=== PATIENT | male | born 1945 | race Caucasian/White ===

== ENCOUNTER 2020-07-05 15:19 | Inpatient (IN) | payer OTHER ==
[~2020-07-05] VITALS: Ht 175.3 cm; Wt 83.7 kg
[2020-07-05 19:07] LABS: Basophils # (auto) 0 10 ^3/uL (0-0.2); Basophils % (auto) 0.2 % (0.0-2.0); Eosinophils # (auto) 0 10 ^3/uL (0-0.8); Eosinophils % (auto) 0.3 % (0.0-7.0); Hemoglobin 17.2 g/dL (13.5-17.5); Lymphocytes # (auto) 0.5 10 ^3/uL (0.4-5.4); Lymphocytes % (auto) 7.7 % (10.0-50.0); Mean Corpuscular Hgb Conc. 33.7 g/dL (32.0-36.0); Mean Corpuscular Volume 88.8 fL (80.0-100.0); Monocytes # (auto) 0.9 10 ^3/uL (0-1.3); Monocytes % (auto) 13.9 % (0.0-12.0); Neutrophils # (auto) 5.2 10 ^3/uL (1.6-8.6); Neutrophils % (auto) 77.9 % (37.0-80.0); Nucleated Red Blood Cells % 0.1 %; Platelet Count (auto) 207 10^3/uL (140-450); Red Blood Cells 5.74 10^6/uL (4.5-5.90); Red Cell Distribution Width 18.4 % (11.8-14.3); White Blood Cell 6.7 10^3/uL (4.4-10.8)
[2020-07-05] MEDS ORDERED: DexAMETHasone SOD PHOS 10MG/1ML VIAL INJ IV ONE (19:15)
[2020-07-05] MEDS ORDERED: SODIUM CHLORIDE 0.9% 1,000 ML IVB ONE (19:15)
[2020-07-05] MEDS ORDERED: AZITHROMYCIN 500MG/ 250ML 250 ML IV ONE (19:15)
[2020-07-05 19:27] LABS: Potassium 3.3 mmol/L (3.5-5.1)
[2020-07-05 19:44] LABS: Albumin 2.7 g/dL (3.4-5.0); BUN/Creatinine Ratio 25.4; Bilirubin, Total 1.2 mg/dL (0.2-1.0); Calcium 8.5 mg/dL (8.5-10.1); Magnesium 2.9 mg/dL (1.6-2.6); Total Protein 7.2 g/dL (6.4-8.2)
[2020-07-05] MEDS ORDERED: ACCU-CHEK COMFORT CURVE STRIP VI ONE (20:00)
[2020-07-05] MEDS ORDERED: DEXTROSE (50%) 50ML SYRG IV ONE (20:00)
[2020-07-06] MEDS ORDERED: DEXTROSE (50%) 50ML SYRG IV PRN ×2 (04:15)
[2020-07-06] MEDS ORDERED: ONDANSETRON HCL 4 MG/2 ML VIAL IV PRN ×2 (04:15→11:45)
[2020-07-06] MEDS ORDERED: POTASSIUM CHL 20MEQ/100ML 100 ML IV ONE (04:15)
[2020-07-06] MEDS ORDERED: MORPHINE SULF INJ 2 MG/ML SYRINGE 1ML IV PRN (04:15)
[2020-07-06] MEDS ORDERED: DOCUSATE SOD 100 MG CAP PO PRN (04:15)
[2020-07-06] MEDS ORDERED: NITROGLYCERIN 0.4 MG SL TAB SL PRN (04:15)
[2020-07-06] MEDS ORDERED: ACETAMINOPHEN 325 MG TAB PO PRN (04:15)
[2020-07-06] MEDS: SODIUM CHLOR 0.9% PF (SALINE LOCK) 10ML VIAL/SYR IV SCH ×3 (06:15→22:25)
[2020-07-06] MEDS: ACCU-CHEK COMFORT CURVE STRIP VI SCH ×8 (06:28→22:00)
[2020-07-06] MEDS: InsuLIN REG 1unit/0.01ml Soln (100units/ml) SC SCH ×8 (06:29→22:00)
[2020-07-06] MEDS: ZINC SULFATE 220mg CAP or TAB PO SCH (09:15)
[2020-07-06] MEDS: DexAMETHasone SOD PHOS 10MG/1ML VIAL INJ IV SCH (09:15)
[2020-07-06] MEDS: DOXYCYCLINE 100MG/250ML 250 ML IV SCH ×2 (09:15→22:26)
[2020-07-06] MEDS: MULTIPLE VITAMIN TAB PO SCH (09:15)
[2020-07-06] MEDS: FAMOTIDINE (10MG/ML) 2ML VL IV SCH (09:15)
[2020-07-06] MEDS: CHOLECALCIFEROL (VITD3) 2,000 UNIT CAP PO SCH (09:16)
[2020-07-06] MEDS: ASCORBIC ACID 1,000 MG TAB PO SCH (09:16)
[2020-07-06] MEDS: HEPARIN SODIUM (PORCINE) 5000 UNITS/ML 1ML VIAL SC SCH ×2 (09:16→22:00)
[2020-07-06 09:54] LABS: Basophils # (auto) 0 10 ^3/uL (0-0.2); Basophils % (auto) 0.2 % (0.0-2.0); Eosinophils # (auto) 0 10 ^3/uL (0-0.8); Hematocrit 50.5 % (41.0-53.0); Lymphocytes # (auto) 0.2 10 ^3/uL (0.4-5.4); Lymphocytes % (auto) 4.2 % (10.0-50.0); Mean Corpuscular Hgb Conc. 33.6 g/dL (32.0-36.0); Mean Corpuscular Volume 89.3 fL (80.0-100.0); Monocytes # (auto) 0.5 10 ^3/uL (0-1.3); Monocytes % (auto) 9.9 % (0.0-12.0); Neutrophils # (auto) 4.6 10 ^3/uL (1.6-8.6); Neutrophils % (auto) 85.7 % (37.0-80.0); Nucleated Red Blood Cells % 0.2 %; Platelet Count (auto) 227 10^3/uL (140-450); Red Blood Cells 5.65 10^6/uL (4.5-5.90); Red Cell Distribution Width 18.4 % (11.8-14.3); White Blood Cell 5.4 10^3/uL (4.4-10.8)
[2020-07-06 10:20] LABS: Albumin 2.4 g/dL (3.4-5.0)
[2020-07-06 10:24] LABS: BUN/Creatinine Ratio 24.2; Bilirubin, Total 1.2 mg/dL (0.2-1.0); Potassium 3.9 mmol/L (3.5-5.1); Total Protein 7.2 g/dL (6.4-8.2)
[2020-07-06] MEDS: ALBUTEROL SULF HFA 90MCG INH 200DOSE IN PRN ×2 (10:29→22:02)
[2020-07-06] MEDS: BUDESONIDE (INHALATION) 180 MCG IH IN SCH ×2 (10:29→22:02)
[2020-07-06 10:50] LABS: Urine Bacteria NONE SEEN /hpf (None Seen); Urine Blood TRACE /uL (Negative); Urine Specific Gravity 1.015 (1.001-1.035); Urine WBC 1 /hpf (0 - 3)
[2020-07-06] MEDS ORDERED: TEMAZEPAM 15 MG CAP PO PRN (11:45)
[2020-07-06] MEDS ORDERED: traMADol HCL 50 MG TAB PO PRN (11:45)
[2020-07-06] MEDS ORDERED: levoFLOXacin 500MG 100 ML IV ONE (13:00)
[2020-07-07] MEDS: InsuLIN REG 1unit/0.01ml Soln (100units/ml) SC SCH ×6 (04:45→22:00)
[2020-07-07] MEDS: ACCU-CHEK COMFORT CURVE STRIP VI SCH ×6 (04:55→23:06)
[2020-07-07 05:00] VITALS: BP 142/83
[2020-07-07] MEDS: SODIUM CHLOR 0.9% PF (SALINE LOCK) 10ML VIAL/SYR IV SCH ×3 (06:00→22:00)
[2020-07-07] MEDS: BUDESONIDE (INHALATION) 180 MCG IH IN SCH ×2 (06:22→20:50)
[2020-07-07] MEDS: ALBUTEROL SULF HFA 90MCG INH 200DOSE IN PRN ×2 (06:22→20:50)
[2020-07-07] MEDS ORDERED: INSLANTI SC (07:42)
[2020-07-07] MEDS ORDERED: GABA400C PO (07:42)
[2020-07-07] MEDS ORDERED: TAMS0.4C36 PO (07:42)
[2020-07-07] MEDS ORDERED: BACL20TA PO (07:42)
[2020-07-07] MEDS ORDERED: ROSU40TA PO (07:42)
[2020-07-07] MEDS ORDERED: FURO20TA3 PO (07:42)
[2020-07-07] MEDS ORDERED: MELO1TAB56 PO (07:45)
[2020-07-07] MEDS ORDERED: GLIP5TAB12 PO (07:46)
[2020-07-07] MEDS ORDERED: ASCO500C49 PO (07:46)
[2020-07-07] MEDS ORDERED: CALC667C5 PO (07:46)
[2020-07-07 08:00] VITALS: BP 122/63
[2020-07-07] MEDS: DexAMETHasone SOD PHOS 10MG/1ML VIAL INJ IV SCH (10:12)
[2020-07-07] MEDS: FAMOTIDINE (10MG/ML) 2ML VL IV SCH (10:13)
[2020-07-07] MEDS: levoFLOXacin 250MG 50 ML IV SCH (10:13)
[2020-07-07] MEDS: ZINC SULFATE 220mg CAP or TAB PO SCH (10:13)
[2020-07-07] MEDS: DOXYCYCLINE 100MG/250ML 250 ML IV SCH ×2 (10:13→23:06)
[2020-07-07] MEDS: MULTIPLE VITAMIN TAB PO SCH (10:14)
[2020-07-07] MEDS: ASCORBIC ACID 1,000 MG TAB PO SCH (10:14)
[2020-07-07] MEDS: CHOLECALCIFEROL (VITD3) 2,000 UNIT CAP PO SCH (10:14)
[2020-07-07] MEDS: HEPARIN SODIUM (PORCINE) 5000 UNITS/ML 1ML VIAL SC SCH ×2 (10:16→23:08)
[2020-07-07 11:05] LABS: Basophils # (auto) 0 10 ^3/uL (0-0.2); Basophils % (auto) 0.1 % (0.0-2.0); Eosinophils # (auto) 0 10 ^3/uL (0-0.8); Lymphocytes # (auto) 0.3 10 ^3/uL (0.4-5.4); Monocytes # (auto) 1.3 10 ^3/uL (0-1.3); Nucleated Red Blood Cells % 0.2 %
[2020-07-07 11:07] LABS: Hematocrit 52.8 % (41.0-53.0); Lymphocytes % (auto) 2.2 % (10.0-50.0); Mean Corpuscular Hemoglobin 30.5 pg (28.0-32.0); Mean Corpuscular Hgb Conc. 34.2 g/dL (32.0-36.0); Mean Corpuscular Volume 89.2 fL (80.0-100.0); Monocytes % (auto) 9.8 % (0.0-12.0); Neutrophils # (auto) 11.4 10 ^3/uL (1.6-8.6); Neutrophils % (auto) 87.9 % (37.0-80.0); Platelet Count (auto) 308 10^3/uL (140-450); Red Blood Cells 5.91 10^6/uL (4.5-5.90); Red Cell Distribution Width 18.7 % (11.8-14.3)
[2020-07-07 11:14] LABS: Albumin 2.5 g/dL (3.4-5.0); Calcium 8.7 mg/dL (8.5-10.1); Potassium 3.8 mmol/L (3.5-5.1)
[2020-07-07 11:17] LABS: BUN/Creatinine Ratio 21.2; Bilirubin, Total 1.1 mg/dL (0.2-1.0); Total Protein 7.5 g/dL (6.4-8.2)
[2020-07-07 12:00] VITALS: BP 128/76
[2020-07-07 17:00] VITALS: BP 126/79
[2020-07-07 22:00] VITALS: BP 156/84
[2020-07-08 05:00] VITALS: BP 139/90
[2020-07-08] MEDS: SODIUM CHLOR 0.9% PF (SALINE LOCK) 10ML VIAL/SYR IV SCH ×3 (06:00→22:29)
[2020-07-08] MEDS: InsuLIN REG 1unit/0.01ml Soln (100units/ml) SC SCH ×2 (06:46→11:50)
[2020-07-08] MEDS: ACCU-CHEK COMFORT CURVE STRIP VI SCH ×2 (06:48→11:45)
[2020-07-08 09:00] VITALS: BP 131/80
[2020-07-08] MEDS: BUDESONIDE (INHALATION) 180 MCG IH IN SCH ×2 (10:00→19:35)
[2020-07-08] MEDS: DexAMETHasone SOD PHOS 10MG/1ML VIAL INJ IV SCH (10:26)
[2020-07-08] MEDS: FAMOTIDINE (10MG/ML) 2ML VL IV SCH (10:26)
[2020-07-08] MEDS: ZINC SULFATE 220mg CAP or TAB PO SCH (10:27)
[2020-07-08] MEDS: MULTIPLE VITAMIN TAB PO SCH (10:27)
[2020-07-08] MEDS: CHOLECALCIFEROL (VITD3) 2,000 UNIT CAP PO SCH (10:27)
[2020-07-08] MEDS: DOXYCYCLINE 100MG/250ML 250 ML IV SCH ×2 (10:27→22:28)
[2020-07-08] MEDS: ASCORBIC ACID 1,000 MG TAB PO SCH (10:27)
[2020-07-08] MEDS: HEPARIN SODIUM (PORCINE) 5000 UNITS/ML 1ML VIAL SC SCH (10:28)
[2020-07-08] MEDS: ALBUTEROL SULF HFA 90MCG INH 200DOSE IN PRN ×2 (11:34→19:35)
[2020-07-08] MEDS: levoFLOXacin 250MG 50 ML IV SCH (12:18)
[2020-07-08 13:00] VITALS: BP 152/89
[2020-07-08] MEDS ORDERED: REMDESIVIR PER PHARMACY 0 ML IV SCH (16:00)
[2020-07-08] MEDS ORDERED: PPN PER PHARMACY 0 ML IV SCH (16:00)
[2020-07-08 16:29] VITALS: BP 137/84
[2020-07-08] MEDS ORDERED: REMDESIVIR 200 MG in NS 210ml LOADING DOSE ADULT IV ONE (17:00)
[2020-07-08] MEDS: AMINO ACID INFUSION IN D10W 1,000 ML IV NR (20:24)
[2020-07-08 22:00] VITALS: BP 134/87
[2020-07-08] MEDS: ENOXAPARIN SOD 80 MG/0.8ML SYRINGE SC SCH (22:28)
[2020-07-09] VITALS (55 sets, daily range): BP systolic 78–131; BP diastolic 51–98
[2020-07-09] MEDS ORDERED: DEXTROSE (50%) 50ML SYRG IV SCH
[2020-07-09] MEDS ORDERED: LORazepam 2MG/ML-1ML VIAL IV PRN (01:00)
[2020-07-09] MEDS ORDERED: ETOMIDATE (2MG/ML) 20ML VIAL IV ONE ×2 (01:29→03:15)
[2020-07-09] MEDS ORDERED: SUCCINYLCHOLINE CHLORIDE 20 MG/ML 10ML VIAL IV ONE ×2 (01:29→03:15)
[2020-07-09] MEDS ORDERED: MIDAZOLAM DRIP 50 mg/50mL 50 ML IV ONE (01:44)
[2020-07-09] MEDS ORDERED: MIDAZOLAM DRIP 50 mg/50mL 50 ML IV SCH (02:15)
[2020-07-09] MEDS ORDERED: ACETAMINOPHEN 650 mg PER 20.3 mL UD GT PRN (02:15)
[2020-07-09] MEDS: SODIUM CHLORIDE 0.9% 1,000 ML IV SCH ×2 (02:40→18:42)
[2020-07-09] MEDS: ACCU-CHEK COMFORT CURVE STRIP VI SCH ×4 (06:00→17:41)
[2020-07-09] MEDS: SODIUM CHLOR 0.9% PF (SALINE LOCK) 10ML VIAL/SYR IV SCH ×4 (06:00→22:00)
[2020-07-09] MEDS: InsuLIN REG 1unit/0.01ml Soln (100units/ml) SC SCH ×4 (06:00→17:42)
[2020-07-09] MEDS: ALBUTEROL SULF 2.5 MG/0.5ML(0.5%) NEB SOLN NEB SCH ×3 (06:00→18:36)
[2020-07-09 09:59] LABS: Basophils # (auto) 0 10 ^3/uL (0-0.2); Basophils % (auto) 0.1 % (0.0-2.0); Eosinophils # (auto) 0 10 ^3/uL (0-0.8); Hematocrit 51.6 % (41.0-53.0); Hemoglobin 17.4 g/dL (13.5-17.5); Lymphocytes # (auto) 0.6 10 ^3/uL (0.4-5.4); Lymphocytes % (auto) 4.2 % (10.0-50.0); Mean Corpuscular Hemoglobin 30.6 pg (28.0-32.0); Mean Corpuscular Hgb Conc. 33.7 g/dL (32.0-36.0); Mean Corpuscular Volume 90.8 fL (80.0-100.0); Monocytes # (auto) 1.5 10 ^3/uL (0-1.3); Monocytes % (auto) 10.5 % (0.0-12.0); Neutrophils # (auto) 12.6 10 ^3/uL (1.6-8.6); Neutrophils % (auto) 85.2 % (37.0-80.0); Platelet Count (auto) 369 10^3/uL (140-450); Red Blood Cells 5.69 10^6/uL (4.5-5.90); Red Cell Distribution Width 19.2 % (11.8-14.3); White Blood Cell 14.8 10^3/uL (4.4-10.8)
[2020-07-09] MEDS: BUDESONIDE (INHALATION) 0.5 MG/2 ML NEB NEB SCH ×2 (10:00→18:36)
[2020-07-09 10:20] LABS: Potassium 5.1 mmol/L (3.5-5.1)
[2020-07-09 10:43] LABS: Albumin 2.1 g/dL (3.4-5.0); BUN/Creatinine Ratio 24.7; Calcium 8.4 mg/dL (8.5-10.1); Magnesium 3.2 mg/dL (1.6-2.6); Phosphorus 5.6 mg/dL (2.5-4.90); Pre Albumin 11.3 mg/dL (20.0-40.0); Total Protein 7.1 g/dL (6.4-8.2)
[2020-07-09] MEDS: DexAMETHasone SOD PHOS 10MG/1ML VIAL INJ IV SCH (11:39)
[2020-07-09] MEDS: levoFLOXacin 250MG 50 ML IV SCH (11:41)
[2020-07-09] MEDS: FAMOTIDINE (10MG/ML) 2ML VL IV SCH (11:42)
[2020-07-09] MEDS: DOXYCYCLINE 100MG/250ML 250 ML IV SCH ×2 (11:44→23:00)
[2020-07-09] MEDS: ASCORBIC ACID 1,000 MG TAB PO SCH (11:45)
[2020-07-09] MEDS: ZINC SULFATE 220mg CAP or TAB PO SCH (11:45)
[2020-07-09] MEDS: MULTIPLE VITAMIN TAB PO SCH (11:45)
[2020-07-09] MEDS: ENOXAPARIN SOD 80 MG/0.8ML SYRINGE SC SCH (11:46)
[2020-07-09] MEDS: CHOLECALCIFEROL (VITD3) 2,000 UNIT CAP PO SCH (11:46)
[2020-07-09] MEDS: MIDAZOLAM DRIP 50 mg/50mL 50 ML IV SCH ×2 (13:04→21:30)
[2020-07-09 14:00] LABS: INR 1.19 (0.9-1.15); Partial Thromboplastin Time 31.8 sec (23.0-31.2)
[2020-07-09] MEDS ORDERED: REMDESIVIR 100 MG in SODIUM CHL 0.9% 250 ML IV SCH (15:00)
[2020-07-09] MEDS: AMINO ACID INFUSION IN D10W 1,000 ML IV NR (16:00)
[2020-07-09] MEDS ORDERED: PPN PER PHARMACY IV NR ×4 (20:00)
[2020-07-09] MEDS: REMDESIVIR 100 MG in SODIUM CHL 0.9% 250 ML IV SCH (21:30)
[2020-07-09 22:22] LABS: Creatinine, Urine 111 mg/dL (30.0-125.0); Sodium Urine 35 mmol/L (40-220)
[2020-07-10] VITALS (54 sets, daily range): BP systolic 87–181; BP diastolic 50–86
[2020-07-10] MEDS: InsuLIN REG 1unit/0.01ml Soln (100units/ml) SC SCH ×5 (00:02→23:23)
[2020-07-10] MEDS: MIDAZOLAM DRIP 50 mg/50mL 50 ML IV SCH ×4 (01:00→20:47)
[2020-07-10] MEDS: SODIUM CHLOR 0.9% PF (SALINE LOCK) 10ML VIAL/SYR IV SCH ×5 (05:59→22:00)
[2020-07-10] MEDS: ACCU-CHEK COMFORT CURVE STRIP VI SCH ×5 (05:59→23:23)
[2020-07-10 06:53] LABS: Basophils # (auto) 0 10 ^3/uL (0-0.2); Basophils % (auto) 0.1 % (0.0-2.0); Eosinophils # (auto) 0 10 ^3/uL (0-0.8); Hematocrit 46.1 % (41.0-53.0); Hemoglobin 15.2 g/dL (13.5-17.5); Lymphocytes # (auto) 0.4 10 ^3/uL (0.4-5.4); Lymphocytes % (auto) 4.5 % (10.0-50.0); Mean Corpuscular Hemoglobin 29.8 pg (28.0-32.0); Mean Corpuscular Volume 90.3 fL (80.0-100.0); Monocytes # (auto) 0.9 10 ^3/uL (0-1.3); Monocytes % (auto) 9.5 % (0.0-12.0); Neutrophils % (auto) 85.9 % (37.0-80.0); Nucleated Red Blood Cells % 0.1 %; Platelet Count (auto) 321 10^3/uL (140-450); Red Blood Cells 5.11 10^6/uL (4.5-5.90); Red Cell Distribution Width 18.9 % (11.8-14.3); White Blood Cell 9.3 10^3/uL (4.4-10.8)
[2020-07-10 07:09] LABS: Albumin 1.9 g/dL (3.4-5.0); Calcium 8.4 mg/dL (8.5-10.1); Magnesium 3.1 mg/dL (1.6-2.6); Potassium 4.5 mmol/L (3.5-5.1)
[2020-07-10 07:18] LABS: BUN/Creatinine Ratio 31.7; Bilirubin, Total 0.8 mg/dL (0.2-1.0); CRP High Sensitivity 12.6 mg/dL (< 0.3); Phosphorus 3.8 mg/dL (2.5-4.90); Total Protein 6.3 g/dL (6.4-8.2)
[2020-07-10] MEDS: BUDESONIDE (INHALATION) 0.5 MG/2 ML NEB NEB SCH ×2 (07:27→18:00)
[2020-07-10] MEDS: ALBUTEROL SULF 2.5 MG/0.5ML(0.5%) NEB SOLN NEB SCH ×3 (07:27→18:00)
[2020-07-10] MEDS: SODIUM CHLORIDE 0.9% 1,000 ML IV SCH (09:30)
[2020-07-10] MEDS: levoFLOXacin 250MG 50 ML IV SCH (09:30)
[2020-07-10] MEDS: DexAMETHasone SOD PHOS 10MG/1ML VIAL INJ IV SCH (10:35)
[2020-07-10] MEDS: DOXYCYCLINE 100MG/250ML 250 ML IV SCH ×2 (10:35→22:00)
[2020-07-10] MEDS: FAMOTIDINE (10MG/ML) 2ML VL IV SCH (10:35)
[2020-07-10] MEDS: MULTIPLE VITAMIN TAB PO SCH (10:36)
[2020-07-10] MEDS: ENOXAPARIN SOD 100 MG/1 ML SYRINGE SC SCH (10:36)
[2020-07-10] MEDS: CHOLECALCIFEROL (VITD3) 2,000 UNIT CAP PO SCH (10:36)
[2020-07-10] MEDS: ASCORBIC ACID 1,000 MG TAB PO SCH (10:36)
[2020-07-10] MEDS: ZINC SULFATE 220mg CAP or TAB PO SCH (10:36)
[2020-07-10] MEDS: DOPamine 1600MCG/ML D5W 250 ML IV SCH (12:00)
[2020-07-10] MEDS: Nepro With Carb Steady 1 Liter Bottle GT SCH (18:03)
[2020-07-10] MEDS ORDERED: TPN PER PHARMACY IV NR ×7 (20:00)
[2020-07-11] VITALS (48 sets, daily range): BP systolic 96–154; BP diastolic 60–96
[2020-07-11] MEDS: SODIUM CHLORIDE 0.9% 1,000 ML IV SCH ×2 (00:27→16:15)
[2020-07-11] MEDS: MIDAZOLAM DRIP 50 mg/50mL 50 ML IV SCH ×4 (01:22→23:50)
[2020-07-11] MEDS ORDERED: fentaNYL Drip 2500mCg/250mlNS 250 ML IV ONE (01:28)
[2020-07-11] MEDS: fentaNYL Drip 2500mCg/250mlNS 250 ML IV SCH ×2 (01:50→18:41)
[2020-07-11 05:06] LABS: Potassium 4.7 mmol/L (3.5-5.1)
[2020-07-11 05:12] LABS: BUN/Creatinine Ratio 34.9; Calcium 8.9 mg/dL (8.5-10.1)
[2020-07-11] MEDS: ALBUTEROL SULF 2.5 MG/0.5ML(0.5%) NEB SOLN NEB SCH ×2 (06:00→19:25)
[2020-07-11] MEDS: InsuLIN REG 1unit/0.01ml Soln (100units/ml) SC SCH ×4 (06:00→23:49)
[2020-07-11] MEDS: ACCU-CHEK COMFORT CURVE STRIP VI SCH ×4 (06:00→23:35)
[2020-07-11] MEDS: BUDESONIDE (INHALATION) 0.5 MG/2 ML NEB NEB SCH ×2 (06:00→19:25)
[2020-07-11] MEDS: SODIUM CHLOR 0.9% PF (SALINE LOCK) 10ML VIAL/SYR IV SCH ×5 (06:00→22:00)
[2020-07-11] MEDS: MULTIPLE VITAMIN TAB PO SCH (08:58)
[2020-07-11] MEDS: DexAMETHasone SOD PHOS 10MG/1ML VIAL INJ IV SCH (08:58)
[2020-07-11] MEDS: ASCORBIC ACID 1,000 MG TAB PO SCH (08:59)
[2020-07-11] MEDS: CHOLECALCIFEROL (VITD3) 2,000 UNIT CAP PO SCH (08:59)
[2020-07-11] MEDS: FAMOTIDINE (10MG/ML) 2ML VL IV SCH (08:59)
[2020-07-11] MEDS: levoFLOXacin 250MG 50 ML IV SCH (09:00)
[2020-07-11] MEDS: ZINC SULFATE 220mg CAP or TAB PO SCH (09:00)
[2020-07-11] MEDS: DOPamine 1600MCG/ML D5W 250 ML IV SCH (10:30)
[2020-07-11] MEDS: ENOXAPARIN SOD 100 MG/1 ML SYRINGE SC SCH (12:13)
[2020-07-11] MEDS: REMDESIVIR 100 MG in SODIUM CHL 0.9% 250 ML IV SCH (16:15)
[2020-07-12] VITALS (47 sets, daily range): BP systolic 95–130; BP diastolic 49–77
[2020-07-12] MEDS: MIDAZOLAM DRIP 50 mg/50mL 50 ML IV SCH ×3 (04:23→23:45)
[2020-07-12] MEDS: ACCU-CHEK COMFORT CURVE STRIP VI SCH ×3 (04:59→18:00)
[2020-07-12] MEDS: InsuLIN REG 1unit/0.01ml Soln (100units/ml) SC SCH ×3 (04:59→18:00)
[2020-07-12] MEDS: SODIUM CHLOR 0.9% PF (SALINE LOCK) 10ML VIAL/SYR IV SCH ×5 (06:00→22:12)
[2020-07-12 06:21] LABS: Basophils # (auto) 0 10 ^3/uL (0-0.2); Basophils % (auto) 0.2 % (0.0-2.0); Eosinophils # (auto) 0 10 ^3/uL (0-0.8); Hemoglobin 16.1 g/dL (13.5-17.5); Lymphocytes # (auto) 0.4 10 ^3/uL (0.4-5.4); Lymphocytes % (auto) 2.9 % (10.0-50.0); Mean Corpuscular Hemoglobin 30.4 pg (28.0-32.0); Mean Corpuscular Hgb Conc. 33.6 g/dL (32.0-36.0); Mean Corpuscular Volume 90.4 fL (80.0-100.0); Monocytes # (auto) 1.6 10 ^3/uL (0-1.3); Monocytes % (auto) 11.7 % (0.0-12.0); Neutrophils # (auto) 11.5 10 ^3/uL (1.6-8.6); Neutrophils % (auto) 85.2 % (37.0-80.0); Nucleated Red Blood Cells % 0.1 %; Platelet Count (auto) 416 10^3/uL (140-450); Red Cell Distribution Width 18.9 % (11.8-14.3); White Blood Cell 13.5 10^3/uL (4.4-10.8)
[2020-07-12 06:34] LABS: Potassium 5.2 mmol/L (3.5-5.1)
[2020-07-12 07:25] LABS: Albumin 2.1 g/dL (3.4-5.0); BUN/Creatinine Ratio 36.6; Bilirubin, Direct 0.4 mg/dL (0-0.2); Bilirubin, Total 0.6 mg/dL (0.2-1.0); Calcium 8.6 mg/dL (8.5-10.1); Total Protein 6.7 g/dL (6.4-8.2)
[2020-07-12] MEDS: ALBUTEROL SULF 2.5 MG/0.5ML(0.5%) NEB SOLN NEB SCH ×3 (07:25→20:11)
[2020-07-12] MEDS: BUDESONIDE (INHALATION) 0.5 MG/2 ML NEB NEB SCH ×2 (07:25→20:11)
[2020-07-12] MEDS: SODIUM CHLORIDE 0.9% 1,000 ML IV SCH ×2 (09:51→22:13)
[2020-07-12] MEDS: DexAMETHasone SOD PHOS 10MG/1ML VIAL INJ IV SCH (09:52)
[2020-07-12] MEDS: FAMOTIDINE (10MG/ML) 2ML VL IV SCH (09:52)
[2020-07-12] MEDS: levoFLOXacin 250MG 50 ML IV SCH (09:52)
[2020-07-12] MEDS: ZINC SULFATE 220mg CAP or TAB PO SCH (09:53)
[2020-07-12] MEDS: MULTIPLE VITAMIN TAB PO SCH (09:54)
[2020-07-12] MEDS: ENOXAPARIN SOD 100 MG/1 ML SYRINGE SC SCH (09:55)
[2020-07-12] MEDS: CHOLECALCIFEROL (VITD3) 2,000 UNIT CAP PO SCH (09:55)
[2020-07-12] MEDS: ASCORBIC ACID 1,000 MG TAB PO SCH (09:55)
[2020-07-12] MEDS: DOPamine 1600MCG/ML D5W 250 ML IV SCH (10:30)
[2020-07-12] MEDS: REMDESIVIR 100 MG in SODIUM CHL 0.9% 250 ML IV SCH (14:40)
[2020-07-13] VITALS (57 sets, daily range): BP systolic 94–139; BP diastolic 61–98
[2020-07-13] MEDS: InsuLIN REG 1unit/0.01ml Soln (100units/ml) SC SCH ×5 (00:32→23:21)
[2020-07-13] MEDS: ACCU-CHEK COMFORT CURVE STRIP VI SCH ×5 (00:33→23:20)
[2020-07-13] MEDS: fentaNYL Drip 2500mCg/250mlNS 250 ML IV SCH (01:30)
[2020-07-13] MEDS: MIDAZOLAM DRIP 50 mg/50mL 50 ML IV SCH (03:37)
[2020-07-13 05:06] LABS: Basophils # (auto) 0 10 ^3/uL (0-0.2); Basophils % (auto) 0.1 % (0.0-2.0); Eosinophils # (auto) 0 10 ^3/uL (0-0.8); Hemoglobin 15.7 g/dL (13.5-17.5); Lymphocytes # (auto) 0.3 10 ^3/uL (0.4-5.4); Lymphocytes % (auto) 2.7 % (10.0-50.0); Mean Corpuscular Hemoglobin 30.5 pg (28.0-32.0); Mean Corpuscular Hgb Conc. 33.4 g/dL (32.0-36.0); Mean Corpuscular Volume 91.4 fL (80.0-100.0); Monocytes # (auto) 1.2 10 ^3/uL (0-1.3); Monocytes % (auto) 11.2 % (0.0-12.0); Neutrophils # (auto) 9.1 10 ^3/uL (1.6-8.6); Platelet Count (auto) 358 10^3/uL (140-450); Red Blood Cells 5.14 10^6/uL (4.5-5.90); Red Cell Distribution Width 19.5 % (11.8-14.3); White Blood Cell 10.6 10^3/uL (4.4-10.8)
[2020-07-13 05:29] LABS: Potassium 5.1 mmol/L (3.5-5.1)
[2020-07-13 05:39] LABS: BUN/Creatinine Ratio 40.4; Bilirubin, Total 0.7 mg/dL (0.2-1.0); Total Protein 6.2 g/dL (6.4-8.2)
[2020-07-13] MEDS: SODIUM CHLOR 0.9% PF (SALINE LOCK) 10ML VIAL/SYR IV SCH ×5 (05:41→21:02)
[2020-07-13] MEDS: ALBUTEROL SULF 2.5 MG/0.5ML(0.5%) NEB SOLN NEB SCH ×3 (07:00→21:58)
[2020-07-13] MEDS: BUDESONIDE (INHALATION) 0.5 MG/2 ML NEB NEB SCH ×2 (07:00→21:58)
[2020-07-13] MEDS: DexAMETHasone SOD PHOS 10MG/1ML VIAL INJ IV SCH (10:09)
[2020-07-13] MEDS: FAMOTIDINE (10MG/ML) 2ML VL IV SCH (10:09)
[2020-07-13] MEDS: MULTIPLE VITAMIN TAB PO SCH (10:09)
[2020-07-13] MEDS: levoFLOXacin 250MG 50 ML IV SCH (10:09)
[2020-07-13] MEDS: ZINC SULFATE 220mg CAP or TAB PO SCH (10:09)
[2020-07-13] MEDS: CHOLECALCIFEROL (VITD3) 2,000 UNIT CAP PO SCH (10:10)
[2020-07-13] MEDS: ASCORBIC ACID 1,000 MG TAB PO SCH (10:10)
[2020-07-13] MEDS: ENOXAPARIN SOD 100 MG/1 ML SYRINGE SC SCH (10:10)
[2020-07-13] MEDS: DOPamine 1600MCG/ML D5W 250 ML IV SCH (10:30)
[2020-07-13] MEDS: METOCLOPRAMIDE HCL 5MG/ml INJ 2ml VIAL IV SCH ×3 (12:00→23:20)
[2020-07-13] MEDS: SODIUM CHLORIDE 0.9% 1,000 ML IV SCH (14:03)
[2020-07-13] MEDS: REMDESIVIR 100 MG in SODIUM CHL 0.9% 250 ML IV SCH (15:32)
[2020-07-14] VITALS (50 sets, daily range): BP systolic 103–135; BP diastolic 64–85
[2020-07-14] MEDS: fentaNYL Drip 2500mCg/250mlNS 250 ML IV SCH (01:30)
[2020-07-14 04:55] LABS: Basophils # (auto) 0 10 ^3/uL (0-0.2); Basophils % (auto) 0.1 % (0.0-2.0); Eosinophils # (auto) 0 10 ^3/uL (0-0.8); Hematocrit 49.4 % (41.0-53.0); Hemoglobin 16.7 g/dL (13.5-17.5); Lymphocytes # (auto) 0.4 10 ^3/uL (0.4-5.4); Lymphocytes % (auto) 2.5 % (10.0-50.0); Mean Corpuscular Hemoglobin 31.2 pg (28.0-32.0); Mean Corpuscular Hgb Conc. 33.8 g/dL (32.0-36.0); Mean Corpuscular Volume 92.3 fL (80.0-100.0); Monocytes # (auto) 1.6 10 ^3/uL (0-1.3); Monocytes % (auto) 10.5 % (0.0-12.0); Neutrophils # (auto) 13.2 10 ^3/uL (1.6-8.6); Neutrophils % (auto) 86.9 % (37.0-80.0); Platelet Count (auto) 365 10^3/uL (140-450); Red Blood Cells 5.35 10^6/uL (4.5-5.90); Red Cell Distribution Width 19.2 % (11.8-14.3); White Blood Cell 15.2 10^3/uL (4.4-10.8)
[2020-07-14] MEDS: SODIUM CHLORIDE 0.9% 1,000 ML IV SCH (05:00)
[2020-07-14] MEDS: InsuLIN REG 1unit/0.01ml Soln (100units/ml) SC SCH ×4 (05:25→23:35)
[2020-07-14 05:26] LABS: Potassium 5.3 mmol/L (3.5-5.1)
[2020-07-14] MEDS: SODIUM CHLOR 0.9% PF (SALINE LOCK) 10ML VIAL/SYR IV SCH ×5 (05:26→21:42)
[2020-07-14] MEDS: ACCU-CHEK COMFORT CURVE STRIP VI SCH ×4 (05:26→23:36)
[2020-07-14] MEDS: METOCLOPRAMIDE HCL 5MG/ml INJ 2ml VIAL IV SCH ×4 (05:28→23:22)
[2020-07-14 05:47] LABS: Albumin 2.1 g/dL (3.4-5.0); BUN/Creatinine Ratio 42.9; Bilirubin, Total 0.6 mg/dL (0.2-1.0); Total Protein 6.6 g/dL (6.4-8.2)
[2020-07-14] MEDS: ALBUTEROL SULF 2.5 MG/0.5ML(0.5%) NEB SOLN NEB SCH ×2 (06:00→21:54)
[2020-07-14] MEDS: ASCORBIC ACID 1,000 MG TAB PO SCH (08:58)
[2020-07-14] MEDS: levoFLOXacin 250MG 50 ML IV SCH (08:58)
[2020-07-14] MEDS: ZINC SULFATE 220mg CAP or TAB PO SCH (08:58)
[2020-07-14] MEDS: DexAMETHasone SOD PHOS 10MG/1ML VIAL INJ IV SCH (08:58)
[2020-07-14] MEDS: FAMOTIDINE (10MG/ML) 2ML VL IV SCH (08:58)
[2020-07-14] MEDS: CHOLECALCIFEROL (VITD3) 2,000 UNIT CAP PO SCH (08:59)
[2020-07-14] MEDS: MULTIPLE VITAMIN TAB PO SCH (08:59)
[2020-07-14] MEDS: MIDAZOLAM DRIP 50 mg/50mL 50 ML IV SCH (09:05)
[2020-07-14] MEDS: BUDESONIDE (INHALATION) 0.5 MG/2 ML NEB NEB SCH ×2 (10:00→21:54)
[2020-07-14] MEDS: D5W/SOD CHL 0.45% 1,000 ML IV SCH ×2 (10:00→23:00)
[2020-07-14] MEDS: ENOXAPARIN SOD 100 MG/1 ML SYRINGE SC SCH (10:00)
[2020-07-14] MEDS: DOPamine 1600MCG/ML D5W 250 ML IV SCH (10:30)
[2020-07-14] MEDS ORDERED: POLYETHYLENE GLYCOL 17 GM PWDR PO ONE (10:45)
[2020-07-15] VITALS (45 sets, daily range): BP systolic 93–126; BP diastolic 65–83
[2020-07-15] MEDS: fentaNYL Drip 2500mCg/250mlNS 250 ML IV SCH ×2 (01:28→23:28)
[2020-07-15 04:34] LABS: Basophils # (auto) 0 10 ^3/uL (0-0.2); Basophils % (auto) 0.1 % (0.0-2.0); Eosinophils # (auto) 0 10 ^3/uL (0-0.8); Hematocrit 48.4 % (41.0-53.0); Hemoglobin 15.9 g/dL (13.5-17.5); Lymphocytes # (auto) 0.3 10 ^3/uL (0.4-5.4); Lymphocytes % (auto) 2.4 % (10.0-50.0); Mean Corpuscular Hemoglobin 29.9 pg (28.0-32.0); Mean Corpuscular Hgb Conc. 32.8 g/dL (32.0-36.0); Monocytes # (auto) 1.1 10 ^3/uL (0-1.3); Monocytes % (auto) 8.1 % (0.0-12.0); Neutrophils # (auto) 12.4 10 ^3/uL (1.6-8.6); Neutrophils % (auto) 89.4 % (37.0-80.0); Nucleated Red Blood Cells % 0.2 %; Platelet Count (auto) 337 10^3/uL (140-450); Red Blood Cells 5.32 10^6/uL (4.5-5.90); Red Cell Distribution Width 18.8 % (11.8-14.3); White Blood Cell 13.8 10^3/uL (4.4-10.8)
[2020-07-15 04:40] LABS: Calcium 8.9 mg/dL (8.5-10.1); Potassium 5.3 mmol/L (3.5-5.1)
[2020-07-15 04:48] LABS: BUN/Creatinine Ratio 42.8; CRP High Sensitivity 7.24 mg/dL (< 0.3)
[2020-07-15] MEDS: ACCU-CHEK COMFORT CURVE STRIP VI SCH ×3 (06:00→18:00)
[2020-07-15] MEDS: METOCLOPRAMIDE HCL 5MG/ml INJ 2ml VIAL IV SCH ×3 (06:00→18:52)
[2020-07-15] MEDS: InsuLIN REG 1unit/0.01ml Soln (100units/ml) SC SCH ×3 (06:00→18:50)
[2020-07-15] MEDS: SODIUM CHLOR 0.9% PF (SALINE LOCK) 10ML VIAL/SYR IV SCH ×5 (06:00→22:00)
[2020-07-15] MEDS: ALBUTEROL SULF 2.5 MG/0.5ML(0.5%) NEB SOLN NEB SCH ×3 (07:23→18:32)
[2020-07-15] MEDS: BUDESONIDE (INHALATION) 0.5 MG/2 ML NEB NEB SCH ×2 (07:25→18:31)
[2020-07-15] MEDS ORDERED: FREE WATER NG SCH (10:00)
[2020-07-15] MEDS: DexAMETHasone SOD PHOS 10MG/1ML VIAL INJ IV SCH (11:10)
[2020-07-15] MEDS: levoFLOXacin 250MG 50 ML IV SCH (11:10)
[2020-07-15] MEDS: FAMOTIDINE (10MG/ML) 2ML VL IV SCH (11:11)
[2020-07-15] MEDS: CHOLECALCIFEROL (VITD3) 2,000 UNIT CAP PO SCH (11:11)
[2020-07-15] MEDS: ASCORBIC ACID 1,000 MG TAB PO SCH (11:11)
[2020-07-15] MEDS: MULTIPLE VITAMIN TAB PO SCH (11:11)
[2020-07-15] MEDS: ZINC SULFATE 220mg CAP or TAB PO SCH (11:11)
[2020-07-15] MEDS: ENOXAPARIN SOD 100 MG/1 ML SYRINGE SC SCH (11:12)
[2020-07-15] MEDS: D5W/SOD CHL 0.45% 1,000 ML IV SCH ×2 (12:16→15:30)
[2020-07-15] MEDS ORDERED: CEFEPIME 1 GM in SODIUM CHL 0.9% 50 ML IV ONE (15:30)
[2020-07-15] MEDS: LACTULOSE 20Gm/30ML SOLN PO SCH (18:51)
[2020-07-15] MEDS: FREE WATER NG SCH (18:52)
[2020-07-15] MEDS: CEFEPIME 1 GM in SODIUM CHL 0.9% 50 ML IV SCH (22:00)
[2020-07-16] VITALS (48 sets, daily range): BP systolic 93–147; BP diastolic 46–91
[2020-07-16] MEDS: DOPamine 1600MCG/ML D5W 250 ML IV SCH ×2 (02:33→10:30)
[2020-07-16] MEDS: MIDAZOLAM DRIP 50 mg/50mL 50 ML IV SCH ×4 (02:34→20:59)
[2020-07-16 04:52] LABS: Basophils # (auto) 0 10 ^3/uL (0-0.2); Basophils % (auto) 0.1 % (0.0-2.0); Eosinophils # (auto) 0 10 ^3/uL (0-0.8); Hematocrit 49.7 % (41.0-53.0); Hemoglobin 16.7 g/dL (13.5-17.5); Lymphocytes # (auto) 0.2 10 ^3/uL (0.4-5.4); Lymphocytes % (auto) 1.3 % (10.0-50.0); Mean Corpuscular Hemoglobin 30.6 pg (28.0-32.0); Mean Corpuscular Hgb Conc. 33.6 g/dL (32.0-36.0); Mean Corpuscular Volume 91.2 fL (80.0-100.0); Monocytes # (auto) 1.4 10 ^3/uL (0-1.3); Monocytes % (auto) 8.5 % (0.0-12.0); Neutrophils # (auto) 15.4 10 ^3/uL (1.6-8.6); Neutrophils % (auto) 90.1 % (37.0-80.0); Nucleated Red Blood Cells % 0.1 %; Platelet Count (auto) 334 10^3/uL (140-450); Red Blood Cells 5.45 10^6/uL (4.5-5.90); Red Cell Distribution Width 18.8 % (11.8-14.3)
[2020-07-16] MEDS: InsuLIN REG 1unit/0.01ml Soln (100units/ml) SC SCH ×4 (05:09→16:47)
[2020-07-16] MEDS: LACTULOSE 20Gm/30ML SOLN PO SCH ×4 (05:10→16:23)
[2020-07-16] MEDS: ACCU-CHEK COMFORT CURVE STRIP VI SCH ×4 (05:10→16:46)
[2020-07-16] MEDS: FREE WATER NG SCH ×4 (05:11→16:23)
[2020-07-16] MEDS: METOCLOPRAMIDE HCL 5MG/ml INJ 2ml VIAL IV SCH ×4 (05:12→16:22)
[2020-07-16] MEDS: SODIUM CHLOR 0.9% PF (SALINE LOCK) 10ML VIAL/SYR IV SCH ×5 (05:13→21:59)
[2020-07-16] MEDS: CEFEPIME 1 GM in SODIUM CHL 0.9% 50 ML IV SCH ×3 (05:29→21:52)
[2020-07-16 08:54] LABS: BUN/Creatinine Ratio 42.1; Calcium 8.7 mg/dL (8.5-10.1); Potassium 5.2 mmol/L (3.5-5.1)
[2020-07-16] MEDS: DexAMETHasone SOD PHOS 10MG/1ML VIAL INJ IV SCH (09:40)
[2020-07-16] MEDS: ZINC SULFATE 220mg CAP or TAB PO SCH (09:40)
[2020-07-16] MEDS: MULTIPLE VITAMIN TAB PO SCH (09:40)
[2020-07-16] MEDS: FAMOTIDINE (10MG/ML) 2ML VL IV SCH (09:40)
[2020-07-16] MEDS: CHOLECALCIFEROL (VITD3) 2,000 UNIT CAP PO SCH (09:40)
[2020-07-16] MEDS: ASCORBIC ACID 1,000 MG TAB PO SCH (09:41)
[2020-07-16] MEDS: ENOXAPARIN SOD 100 MG/1 ML SYRINGE SC SCH (09:42)
[2020-07-16] MEDS: BUDESONIDE (INHALATION) 0.5 MG/2 ML NEB NEB SCH ×2 (11:15→18:12)
[2020-07-16] MEDS: ALBUTEROL SULF 2.5 MG/0.5ML(0.5%) NEB SOLN NEB SCH ×3 (11:15→18:12)
[2020-07-16] MEDS: D5W/SOD CHL 0.45% 1,000 ML IV SCH (11:30)
[2020-07-16] MEDS ORDERED: SODIUM ZIRCONIUM CYCL 10 GM PAK PO ONE (14:45)
[2020-07-16] MEDS: D5W 5% 1,000 ML IV SCH (15:00)
[2020-07-17] VITALS (47 sets, daily range): BP systolic 96–129; BP diastolic 62–92
[2020-07-17] MEDS: ACCU-CHEK COMFORT CURVE STRIP VI SCH ×5 (00:27→23:18)
[2020-07-17] MEDS: InsuLIN REG 1unit/0.01ml Soln (100units/ml) SC SCH ×5 (00:28→23:21)
[2020-07-17] MEDS: METOCLOPRAMIDE HCL 5MG/ml INJ 2ml VIAL IV SCH ×4 (00:29→21:12)
[2020-07-17] MEDS: FREE WATER NG SCH ×5 (00:29→23:27)
[2020-07-17] MEDS: MIDAZOLAM DRIP 50 mg/50mL 50 ML IV SCH (01:22)
[2020-07-17] MEDS: LACTULOSE 20Gm/30ML SOLN PO SCH ×4 (05:38→18:06)
[2020-07-17 05:45] LABS: Basophils # (auto) 0.1 10 ^3/uL (0-0.2); Basophils % (auto) 0.6 % (0.0-2.0); Eosinophils # (auto) 0 10 ^3/uL (0-0.8); Eosinophils % (auto) 0.1 % (0.0-7.0); Hemoglobin 15.9 g/dL (13.5-17.5); Lymphocytes # (auto) 0.4 10 ^3/uL (0.4-5.4); Lymphocytes % (auto) 1.9 % (10.0-50.0); Mean Corpuscular Hemoglobin 29.8 pg (28.0-32.0); Mean Corpuscular Hgb Conc. 32.5 g/dL (32.0-36.0); Mean Corpuscular Volume 91.8 fL (80.0-100.0); Monocytes # (auto) 1.6 10 ^3/uL (0-1.3); Monocytes % (auto) 7.5 % (0.0-12.0); Neutrophils # (auto) 19.2 10 ^3/uL (1.6-8.6); Neutrophils % (auto) 89.9 % (37.0-80.0); Platelet Count (auto) 320 10^3/uL (140-450); Red Blood Cells 5.33 10^6/uL (4.5-5.90); Red Cell Distribution Width 18.8 % (11.8-14.3); White Blood Cell 21.4 10^3/uL (4.4-10.8)
[2020-07-17] MEDS: ALBUTEROL SULF 2.5 MG/0.5ML(0.5%) NEB SOLN NEB SCH ×3 (06:00→21:46)
[2020-07-17 06:03] LABS: BUN/Creatinine Ratio 38.1; Calcium 9.1 mg/dL (8.5-10.1); Potassium 5.3 mmol/L (3.5-5.1)
[2020-07-17] MEDS: SODIUM CHLOR 0.9% PF (SALINE LOCK) 10ML VIAL/SYR IV SCH ×5 (06:24→21:12)
[2020-07-17] MEDS: CEFEPIME 1 GM in SODIUM CHL 0.9% 50 ML IV SCH ×3 (06:24→22:35)
[2020-07-17] MEDS ORDERED: SODIUM ZIRCONIUM CYCL 10 GM PAK PO ONE ×2 (07:00→14:15)
[2020-07-17] MEDS: BUDESONIDE (INHALATION) 0.5 MG/2 ML NEB NEB SCH ×2 (09:41→21:46)
[2020-07-17] MEDS: DOPamine 1600MCG/ML D5W 250 ML IV SCH (10:30)
[2020-07-17] MEDS: DexAMETHasone SOD PHOS 10MG/1ML VIAL INJ IV SCH (10:59)
[2020-07-17] MEDS: ZINC SULFATE 220mg CAP or TAB PO SCH (10:59)
[2020-07-17] MEDS: FAMOTIDINE (10MG/ML) 2ML VL IV SCH (10:59)
[2020-07-17] MEDS: ENOXAPARIN SOD 100 MG/1 ML SYRINGE SC SCH (11:00)
[2020-07-17] MEDS: MULTIPLE VITAMIN TAB PO SCH (11:00)
[2020-07-17] MEDS: CHOLECALCIFEROL (VITD3) 2,000 UNIT CAP PO SCH (11:00)
[2020-07-17] MEDS: ASCORBIC ACID 1,000 MG TAB PO SCH (11:00)
[2020-07-17] MEDS: fentaNYL Drip 2500mCg/250mlNS 250 ML IV SCH (14:00)
[2020-07-17] MEDS ORDERED: MAGNESIUM CITRATE SOLUTION 300 ML BTL PO ONE (14:15)
[2020-07-17] MEDS: D5W 5% 1,000 ML IV SCH (15:25)
[2020-07-17] MEDS: LINEZOLID 600MG/300ML 300 ML IV SCH (21:13)
[2020-07-18] VITALS (41 sets, daily range): BP systolic 90–127; BP diastolic 55–77
[2020-07-18] MEDS: LACTULOSE 20Gm/30ML SOLN PO SCH ×5 (00:40→22:00)
[2020-07-18] MEDS: fentaNYL Drip 2500mCg/250mlNS 250 ML IV SCH ×2 (01:16→18:19)
[2020-07-18 05:30] LABS: Basophils # (auto) 0 10 ^3/uL (0-0.2); Basophils % (auto) 0.2 % (0.0-2.0); Eosinophils # (auto) 0 10 ^3/uL (0-0.8); Hematocrit 46.4 % (41.0-53.0); Hemoglobin 15.6 g/dL (13.5-17.5); Lymphocytes # (auto) 0.6 10 ^3/uL (0.4-5.4); Mean Corpuscular Hemoglobin 30.7 pg (28.0-32.0); Mean Corpuscular Hgb Conc. 33.7 g/dL (32.0-36.0); Monocytes # (auto) 1.5 10 ^3/uL (0-1.3); Neutrophils # (auto) 19.4 10 ^3/uL (1.6-8.6); Neutrophils % (auto) 89.8 % (37.0-80.0); Nucleated Red Blood Cells % 0.1 %; Platelet Count (auto) 306 10^3/uL (140-450); White Blood Cell 21.6 10^3/uL (4.4-10.8)
[2020-07-18 05:46] LABS: Albumin 1.9 g/dL (3.4-5.0); Calcium 8.4 mg/dL (8.5-10.1); Potassium 5.3 mmol/L (3.5-5.1)
[2020-07-18] MEDS: CEFEPIME 1 GM in SODIUM CHL 0.9% 50 ML IV SCH ×3 (05:48→21:49)
[2020-07-18] MEDS: FREE WATER NG SCH ×3 (05:48→18:14)
[2020-07-18] MEDS: SODIUM CHLOR 0.9% PF (SALINE LOCK) 10ML VIAL/SYR IV SCH ×5 (05:48→21:49)
[2020-07-18] MEDS: METOCLOPRAMIDE HCL 5MG/ml INJ 2ml VIAL IV SCH ×2 (05:48→14:00)
[2020-07-18] MEDS: ACCU-CHEK COMFORT CURVE STRIP VI SCH ×3 (05:49→18:14)
[2020-07-18] MEDS: InsuLIN REG 1unit/0.01ml Soln (100units/ml) SC SCH ×3 (05:51→18:19)
[2020-07-18 05:56] LABS: BUN/Creatinine Ratio 44.6; Bilirubin, Total 0.7 mg/dL (0.2-1.0); Total Protein 6.3 g/dL (6.4-8.2)
[2020-07-18] MEDS: ALBUTEROL SULF 2.5 MG/0.5ML(0.5%) NEB SOLN NEB SCH ×2 (06:20→22:00)
[2020-07-18] MEDS: BUDESONIDE (INHALATION) 0.5 MG/2 ML NEB NEB SCH (06:20)
[2020-07-18] MEDS: LINEZOLID 600MG/300ML 300 ML IV SCH (10:00)
[2020-07-18] MEDS: ASCORBIC ACID 1,000 MG TAB PO SCH (10:00)
[2020-07-18] MEDS: DexAMETHasone SOD PHOS 10MG/1ML VIAL INJ IV SCH (10:00)
[2020-07-18] MEDS: CHOLECALCIFEROL (VITD3) 2,000 UNIT CAP PO SCH (10:00)
[2020-07-18] MEDS: FAMOTIDINE (10MG/ML) 2ML VL IV SCH (10:00)
[2020-07-18] MEDS: MULTIPLE VITAMIN TAB PO SCH (10:00)
[2020-07-18] MEDS: ZINC SULFATE 220mg CAP or TAB PO SCH (10:00)
[2020-07-18] MEDS: ENOXAPARIN SOD 100 MG/1 ML SYRINGE SC SCH (10:00)
[2020-07-18] MEDS: DOPamine 1600MCG/ML D5W 250 ML IV SCH (10:30)
[2020-07-18] MEDS: MIDAZOLAM DRIP 50 mg/50mL 50 ML IV SCH ×2 (11:45→18:19)
[2020-07-18] MEDS: SOD CHL 0.45% 1,000 ML IV SCH ×2 (14:38→21:50)
[2020-07-18] MEDS ORDERED: FLUCONAZOLE 200MG/100ML 100 ML IV ONE (15:30)
[2020-07-18] MEDS: Nepro With Carb Steady 1 Liter Bottle GT SCH (18:20)
[2020-07-19] VITALS (44 sets, daily range): BP systolic 101–152; BP diastolic 57–78
[2020-07-19] MEDS: LINEZOLID 600MG/300ML 300 ML IV SCH ×3 (02:35→21:49)
[2020-07-19] MEDS: FREE WATER NG SCH ×5 (02:36→23:43)
[2020-07-19] MEDS: ACCU-CHEK COMFORT CURVE STRIP VI SCH ×5 (02:36→23:42)
[2020-07-19] MEDS: InsuLIN REG 1unit/0.01ml Soln (100units/ml) SC SCH ×5 (02:45→23:43)
[2020-07-19 05:18] LABS: Basophils # (auto) 0.1 10 ^3/uL (0-0.2); Basophils % (auto) 0.8 % (0.0-2.0); Eosinophils # (auto) 0 10 ^3/uL (0-0.8); Hematocrit 42.8 % (41.0-53.0); Hemoglobin 14.4 g/dL (13.5-17.5); Lymphocytes # (auto) 0.3 10 ^3/uL (0.4-5.4); Lymphocytes % (auto) 1.9 % (10.0-50.0); Mean Corpuscular Hemoglobin 30.8 pg (28.0-32.0); Mean Corpuscular Hgb Conc. 33.6 g/dL (32.0-36.0); Mean Corpuscular Volume 91.4 fL (80.0-100.0); Monocytes # (auto) 0.9 10 ^3/uL (0-1.3); Monocytes % (auto) 5.3 % (0.0-12.0); Neutrophils # (auto) 15.2 10 ^3/uL (1.6-8.6); Platelet Count (auto) 266 10^3/uL (140-450); Red Blood Cells 4.68 10^6/uL (4.5-5.90); Red Cell Distribution Width 17.7 % (11.8-14.3); White Blood Cell 16.6 10^3/uL (4.4-10.8)
[2020-07-19] MEDS: SODIUM CHLOR 0.9% PF (SALINE LOCK) 10ML VIAL/SYR IV SCH ×5 (05:20→21:49)
[2020-07-19] MEDS: CEFEPIME 1 GM in SODIUM CHL 0.9% 50 ML IV SCH ×3 (05:20→22:53)
[2020-07-19] MEDS: LACTULOSE 20Gm/30ML SOLN PO SCH ×5 (05:20→22:00)
[2020-07-19 05:39] LABS: BUN/Creatinine Ratio 45.2; Potassium 5.5 mmol/L (3.5-5.1)
[2020-07-19] MEDS: ALBUTEROL SULF 2.5 MG/0.5ML(0.5%) NEB SOLN NEB SCH ×4 (06:00→21:33)
[2020-07-19] MEDS: BUDESONIDE (INHALATION) 0.5 MG/2 ML NEB NEB SCH ×3 (06:01→21:33)
[2020-07-19] MEDS: MIDAZOLAM DRIP 50 mg/50mL 50 ML IV SCH (10:00)
[2020-07-19] MEDS: MULTIPLE VITAMIN TAB PO SCH (10:00)
[2020-07-19] MEDS: FAMOTIDINE (10MG/ML) 2ML VL IV SCH (10:00)
[2020-07-19] MEDS: fentaNYL Drip 2500mCg/250mlNS 250 ML IV SCH (10:00)
[2020-07-19] MEDS: ENOXAPARIN SOD 100 MG/1 ML SYRINGE SC SCH (10:00)
[2020-07-19] MEDS: CHOLECALCIFEROL (VITD3) 2,000 UNIT CAP PO SCH (10:00)
[2020-07-19] MEDS: DexAMETHasone SOD PHOS 10MG/1ML VIAL INJ IV SCH (10:00)
[2020-07-19] MEDS: ZINC SULFATE 220mg CAP or TAB PO SCH (10:00)
[2020-07-19] MEDS: ASCORBIC ACID 1,000 MG TAB PO SCH (10:00)
[2020-07-19] MEDS: DOPamine 1600MCG/ML D5W 250 ML IV SCH (10:30)
[2020-07-19] MEDS: SOD CHL 0.45% 1,000 ML IV SCH (11:40)
[2020-07-19] MEDS: FLUCONAZOLE 200MG/100ML 100 ML IV SCH (12:00)
[2020-07-19] MEDS ORDERED: SODIUM ZIRCONIUM CYCL 10 GM PAK PO ONE (15:00)
[2020-07-20] VITALS (84 sets, daily range): BP systolic 95–150; BP diastolic 51–82
[2020-07-20] MEDS: InsuLIN REG 1unit/0.01ml Soln (100units/ml) SC SCH ×3 (06:19→18:21)
[2020-07-20] MEDS: ACCU-CHEK COMFORT CURVE STRIP VI SCH ×3 (06:19→18:21)
[2020-07-20] MEDS: CEFEPIME 1 GM in SODIUM CHL 0.9% 50 ML IV SCH ×3 (06:20→21:32)
[2020-07-20] MEDS: FREE WATER NG SCH ×3 (06:20→16:43)
[2020-07-20] MEDS: SODIUM CHLOR 0.9% PF (SALINE LOCK) 10ML VIAL/SYR IV SCH ×3 (06:20→21:32)
[2020-07-20 06:28] LABS: Basophils # (auto) 0 10 ^3/uL (0-0.2); Basophils % (auto) 0.2 % (0.0-2.0); Eosinophils # (auto) 0 10 ^3/uL (0-0.8); Hemoglobin 14.3 g/dL (13.5-17.5); Lymphocytes # (auto) 0.4 10 ^3/uL (0.4-5.4); Lymphocytes % (auto) 2.4 % (10.0-50.0); Mean Corpuscular Hemoglobin 30.2 pg (28.0-32.0); Mean Corpuscular Hgb Conc. 33.3 g/dL (32.0-36.0); Mean Corpuscular Volume 90.7 fL (80.0-100.0); Monocytes # (auto) 1.4 10 ^3/uL (0-1.3); Monocytes % (auto) 7.7 % (0.0-12.0); Neutrophils # (auto) 16.2 10 ^3/uL (1.6-8.6); Neutrophils % (auto) 89.7 % (37.0-80.0); Platelet Count (auto) 323 10^3/uL (140-450); Red Blood Cells 4.74 10^6/uL (4.5-5.90); Red Cell Distribution Width 17.5 % (11.8-14.3)
[2020-07-20 06:35] LABS: BUN/Creatinine Ratio 49.6; Potassium 5.4 mmol/L (3.5-5.1)
[2020-07-20] MEDS: ALBUTEROL SULF 2.5 MG/0.5ML(0.5%) NEB SOLN NEB SCH ×3 (07:05→18:20)
[2020-07-20] MEDS: BUDESONIDE (INHALATION) 0.5 MG/2 ML NEB NEB SCH ×2 (07:05→18:20)
[2020-07-20] MEDS: ZINC SULFATE 220mg CAP or TAB PO SCH (10:00)
[2020-07-20] MEDS: CHOLECALCIFEROL (VITD3) 2,000 UNIT CAP PO SCH (10:00)
[2020-07-20] MEDS: ENOXAPARIN SOD 100 MG/1 ML SYRINGE SC SCH (10:00)
[2020-07-20] MEDS: ASCORBIC ACID 1,000 MG TAB PO SCH (10:00)
[2020-07-20] MEDS: LINEZOLID 600MG/300ML 300 ML IV SCH ×2 (10:00→21:33)
[2020-07-20] MEDS: LACTULOSE 20Gm/30ML SOLN PO SCH ×2 (10:00→21:33)
[2020-07-20] MEDS: FAMOTIDINE (10MG/ML) 2ML VL IV SCH (10:00)
[2020-07-20] MEDS: DexAMETHasone SOD PHOS 10MG/1ML VIAL INJ IV SCH (10:00)
[2020-07-20] MEDS: MULTIPLE VITAMIN TAB PO SCH (10:00)
[2020-07-20] MEDS: DOPamine 1600MCG/ML D5W 250 ML IV SCH (10:30)
[2020-07-20] MEDS: FLUCONAZOLE 200MG/100ML 100 ML IV SCH (12:18)
[2020-07-20] MEDS: INSULIN LANTUS (GLARGINE) 1 /0.01ml (100units/ml) SC SCH (21:35)
[2020-07-20] MEDS ORDERED: SODIUM ZIRCONIUM CYCL 10 GM PAK PO ONE (22:00)
[2020-07-21] VITALS (98 sets, daily range): BP systolic 92–170; BP diastolic 59–91
[2020-07-21] MEDS: ACCU-CHEK COMFORT CURVE STRIP VI SCH ×4 (00:09→17:37)
[2020-07-21] MEDS: FREE WATER NG SCH ×4 (00:09→18:00)
[2020-07-21] MEDS: InsuLIN REG 1unit/0.01ml Soln (100units/ml) SC SCH ×4 (00:12→17:38)
[2020-07-21] MEDS: fentaNYL Drip 2500mCg/250mlNS 250 ML IV SCH (01:30)
[2020-07-21 03:43] LABS: Urine Bacteria FEW /hpf (None Seen); Urine Blood 3+ /uL (Negative); Urine Mucus FEW (None Seen); Urine Specific Gravity 1.018 (1.001-1.035); Urine WBC 12 /hpf (0 - 3)
[2020-07-21 04:46] LABS: Basophils # (auto) 0.1 10 ^3/uL (0-0.2); Basophils % (auto) 0.3 % (0.0-2.0); Eosinophils # (auto) 0 10 ^3/uL (0-0.8); Hematocrit 45.9 % (41.0-53.0); Lymphocytes # (auto) 0.4 10 ^3/uL (0.4-5.4); Lymphocytes % (auto) 1.6 % (10.0-50.0); Mean Corpuscular Hemoglobin 29.6 pg (28.0-32.0); Mean Corpuscular Hgb Conc. 32.7 g/dL (32.0-36.0); Mean Corpuscular Volume 90.4 fL (80.0-100.0); Monocytes # (auto) 1.8 10 ^3/uL (0-1.3); Monocytes % (auto) 7.8 % (0.0-12.0); Neutrophils # (auto) 20.5 10 ^3/uL (1.6-8.6); Neutrophils % (auto) 90.3 % (37.0-80.0); Platelet Count (auto) 362 10^3/uL (140-450); Red Blood Cells 5.07 10^6/uL (4.5-5.90); Red Cell Distribution Width 17.3 % (11.8-14.3); White Blood Cell 22.7 10^3/uL (4.4-10.8)
[2020-07-21 04:54] LABS: Chloride 105 mmol/L (98-107); Potassium 4.7 mmol/L (3.5-5.1); Sodium 136 mmol/L (136-145)
[2020-07-21 05:00] LABS: Alanine Aminotransferase 38 U/L (16-61); Anion Gap 9 (5-15); Aspartate Aminotransferase 30 U/L (15-37); BUN/Creatinine Ratio 45.5; Blood Urea Nitrogen 65 mg/dL (7-18); Calcium 8.6 mg/dL (8.5-10.1); Carbon Dioxide 22 mmol/L (21-32); GFR African American 62 mL/min; GFR Non-African American 51 mL/min; Glucose 257 mg/dL (74-106)
[2020-07-21 05:03] LABS: Alkaline Phosphatase 92 U/L (45-117); Bilirubin, Total 0.5 mg/dL (0.2-1.0); Total Protein 6.3 g/dL (6.4-8.2)
[2020-07-21] MEDS: ALBUTEROL SULF 2.5 MG/0.5ML(0.5%) NEB SOLN NEB SCH ×2 (06:00→18:40)
[2020-07-21] MEDS: CEFEPIME 1 GM in SODIUM CHL 0.9% 50 ML IV SCH ×2 (06:32→14:00)
[2020-07-21] MEDS: INSULIN LANTUS (GLARGINE) 1 /0.01ml (100units/ml) SC SCH ×2 (06:36→22:18)
[2020-07-21] MEDS ORDERED: hydrALAZINE HCL 20 MG/ML VL IV PRN (09:15)
[2020-07-21] MEDS ORDERED: LABETALOL HCL 5 MG/ML 4ML SYRINGE IV PRN ×2 (09:45)
[2020-07-21] MEDS: LACTULOSE 20Gm/30ML SOLN PO SCH ×2 (10:00→22:09)
[2020-07-21] MEDS: ZINC SULFATE 220mg CAP or TAB PO SCH (10:00)
[2020-07-21] MEDS: ENOXAPARIN SOD 100 MG/1 ML SYRINGE SC SCH (10:00)
[2020-07-21] MEDS: LINEZOLID 600MG/300ML 300 ML IV SCH ×2 (10:00→21:47)
[2020-07-21] MEDS: MULTIPLE VITAMIN TAB PO SCH (10:00)
[2020-07-21] MEDS: BUDESONIDE (INHALATION) 0.5 MG/2 ML NEB NEB SCH ×2 (10:00→18:40)
[2020-07-21] MEDS: FAMOTIDINE (10MG/ML) 2ML VL IV SCH (10:00)
[2020-07-21] MEDS: SODIUM CHLOR 0.9% PF (SALINE LOCK) 10ML VIAL/SYR IV SCH ×2 (10:00→21:43)
[2020-07-21] MEDS: ASCORBIC ACID 1,000 MG TAB PO SCH (10:00)
[2020-07-21] MEDS: CHOLECALCIFEROL (VITD3) 2,000 UNIT CAP PO SCH (10:00)
[2020-07-21 10:47] LABS: Magnesium 2.2 mg/dL (1.6-2.6); Phosphorus 2.7 mg/dL (2.5-4.90)
[2020-07-21] MEDS: PROPOFOL 100 ML IV SCH ×2 (11:15→21:38)
[2020-07-21] MEDS: MIDAZOLAM DRIP 50 mg/50mL 50 ML IV SCH (11:45)
[2020-07-21] MEDS: FLUCONAZOLE 200MG/100ML 100 ML IV SCH (12:19)
[2020-07-22] VITALS (88 sets, daily range): BP systolic 88–169; BP diastolic 53–99
[2020-07-22] MEDS: CEFEPIME 1 GM in SODIUM CHL 0.9% 50 ML IV SCH ×2 (00:04→06:16)
[2020-07-22] MEDS: FREE WATER NG SCH ×4 (00:08→18:00)
[2020-07-22] MEDS: ACCU-CHEK COMFORT CURVE STRIP VI SCH ×4 (00:16→18:00)
[2020-07-22] MEDS: PROPOFOL 100 ML IV SCH ×3 (00:16→20:29)
[2020-07-22] MEDS: InsuLIN REG 1unit/0.01ml Soln (100units/ml) SC SCH ×4 (00:27→17:38)
[2020-07-22] MEDS: fentaNYL Drip 2500mCg/250mlNS 250 ML IV SCH (01:30)
[2020-07-22 04:52] LABS: Basophils # (auto) 0 10 ^3/uL (0-0.2); Basophils % (auto) 0.2 % (0.0-2.0); Eosinophils # (auto) 0 10 ^3/uL (0-0.8); Hematocrit 45.6 % (41.0-53.0); Hemoglobin 15.4 g/dL (13.5-17.5); Lymphocytes # (auto) 0.6 10 ^3/uL (0.4-5.4); Lymphocytes % (auto) 2.6 % (10.0-50.0); Mean Corpuscular Hemoglobin 30.1 pg (28.0-32.0); Mean Corpuscular Hgb Conc. 33.6 g/dL (32.0-36.0); Mean Corpuscular Volume 89.6 fL (80.0-100.0); Monocytes # (auto) 1.8 10 ^3/uL (0-1.3); Monocytes % (auto) 8.2 % (0.0-12.0); Neutrophils # (auto) 19.8 10 ^3/uL (1.6-8.6); Nucleated Red Blood Cells % 0.1 %; Platelet Count (auto) 328 10^3/uL (140-450); Red Blood Cells 5.09 10^6/uL (4.5-5.90); Red Cell Distribution Width 17.3 % (11.8-14.3); White Blood Cell 22.3 10^3/uL (4.4-10.8)
[2020-07-22 05:35] LABS: BUN/Creatinine Ratio 39.9; Bilirubin, Total 0.6 mg/dL (0.2-1.0); Calcium 8.8 mg/dL (8.5-10.1); Total Protein 6.6 g/dL (6.4-8.2)
[2020-07-22] MEDS: ALBUTEROL SULF 2.5 MG/0.5ML(0.5%) NEB SOLN NEB SCH ×2 (06:00→14:00)
[2020-07-22] MEDS: INSULIN LANTUS (GLARGINE) 1 /0.01ml (100units/ml) SC SCH ×2 (06:21→21:55)
[2020-07-22] MEDS: BUDESONIDE (INHALATION) 0.5 MG/2 ML NEB NEB SCH ×2 (08:59→22:00)
[2020-07-22] MEDS ORDERED: FUROSEMIDE 40 MG/4 ML VIAL IV ONE (09:45)
[2020-07-22] MEDS: CHOLECALCIFEROL (VITD3) 2,000 UNIT CAP PO SCH (10:00)
[2020-07-22] MEDS: MULTIPLE VITAMIN TAB PO SCH (10:00)
[2020-07-22] MEDS: ENOXAPARIN SOD 100 MG/1 ML SYRINGE SC SCH (10:00)
[2020-07-22] MEDS: ZINC SULFATE 220mg CAP or TAB PO SCH (10:00)
[2020-07-22] MEDS: ASCORBIC ACID 1,000 MG TAB PO SCH (10:00)
[2020-07-22] MEDS: FAMOTIDINE (10MG/ML) 2ML VL IV SCH (10:00)
[2020-07-22] MEDS: LACTULOSE 20Gm/30ML SOLN PO SCH ×2 (10:00→21:37)
[2020-07-22] MEDS: SODIUM CHLOR 0.9% PF (SALINE LOCK) 10ML VIAL/SYR IV SCH ×2 (10:00→21:34)
[2020-07-22] MEDS: LINEZOLID 600MG/300ML 300 ML IV SCH ×3 (10:00→22:30)
[2020-07-22] MEDS: MIDAZOLAM DRIP 50 mg/50mL 50 ML IV SCH (11:45)
[2020-07-22] MEDS: FLUCONAZOLE 200MG/100ML 100 ML IV SCH (12:00)
[2020-07-22] MEDS ORDERED: MEROPENEM 500MG IVPB 50 ML IV ONE (14:45)
[2020-07-22] MEDS ORDERED: LABETALOL HCL 5 MG/ML 4ML SYRINGE IV PRN (17:15)
[2020-07-22] MEDS ORDERED: Glucerna 1.2 Cal 1Liter BOTTLE GT SCH (17:15)
[2020-07-22] MEDS: ENOXAPARIN SOD 40 MG/0.4 ML SYRINGE SC SCH (21:42)
[2020-07-23] VITALS (82 sets, daily range): BP systolic 75–140; BP diastolic 50–79
[2020-07-23] MEDS: MEROPENEM 1GM IVPB 100 ML IV SCH ×4 (00:13→22:28)
[2020-07-23] MEDS: ACCU-CHEK COMFORT CURVE STRIP VI SCH ×4 (00:17→18:02)
[2020-07-23] MEDS: FREE WATER NG SCH ×4 (00:17→18:01)
[2020-07-23] MEDS: InsuLIN REG 1unit/0.01ml Soln (100units/ml) SC SCH ×4 (00:22→18:02)
[2020-07-23] MEDS: fentaNYL Drip 2500mCg/250mlNS 250 ML IV SCH ×2 (01:30→20:30)
[2020-07-23] MEDS: PROPOFOL 100 ML IV SCH ×2 (02:38→07:27)
[2020-07-23 04:28] LABS: Basophils # (auto) 0.1 10 ^3/uL (0-0.2); Basophils % (auto) 0.3 % (0.0-2.0); Eosinophils # (auto) 0 10 ^3/uL (0-0.8); Eosinophils % (auto) 0.2 % (0.0-7.0); Hematocrit 44.8 % (41.0-53.0); Lymphocytes # (auto) 0.6 10 ^3/uL (0.4-5.4); Lymphocytes % (auto) 2.5 % (10.0-50.0); Mean Corpuscular Hemoglobin 30.2 pg (28.0-32.0); Mean Corpuscular Hgb Conc. 33.5 g/dL (32.0-36.0); Monocytes # (auto) 1.2 10 ^3/uL (0-1.3); Monocytes % (auto) 5.3 % (0.0-12.0); Neutrophils # (auto) 21.1 10 ^3/uL (1.6-8.6); Neutrophils % (auto) 91.7 % (37.0-80.0); Nucleated Red Blood Cells % 0.1 %; Platelet Count (auto) 286 10^3/uL (140-450); Red Blood Cells 4.97 10^6/uL (4.5-5.90); Red Cell Distribution Width 17.8 % (11.8-14.3)
[2020-07-23 04:52] LABS: Potassium 4.2 mmol/L (3.5-5.1)
[2020-07-23 05:00] LABS: BUN/Creatinine Ratio 34.4; Calcium 8.4 mg/dL (8.5-10.1)
[2020-07-23] MEDS: INSULIN LANTUS (GLARGINE) 1 /0.01ml (100units/ml) SC SCH ×2 (07:07→22:29)
[2020-07-23] MEDS: SODIUM CHLOR 0.9% PF (SALINE LOCK) 10ML VIAL/SYR IV SCH ×2 (10:00→22:18)
[2020-07-23] MEDS: CHOLECALCIFEROL (VITD3) 2,000 UNIT CAP PO SCH (10:00)
[2020-07-23] MEDS: ASCORBIC ACID 1,000 MG TAB PO SCH (10:00)
[2020-07-23] MEDS: LINEZOLID 600MG/300ML 300 ML IV SCH (10:00)
[2020-07-23] MEDS: MULTIPLE VITAMIN TAB PO SCH (10:00)
[2020-07-23] MEDS: LACTULOSE 20Gm/30ML SOLN PO SCH ×2 (10:00→22:28)
[2020-07-23] MEDS: ENOXAPARIN SOD 40 MG/0.4 ML SYRINGE SC SCH ×2 (10:00→22:00)
[2020-07-23] MEDS: ZINC SULFATE 220mg CAP or TAB PO SCH (10:00)
[2020-07-23] MEDS: FAMOTIDINE (10MG/ML) 2ML VL IV SCH (10:00)
[2020-07-23] MEDS: BUDESONIDE (INHALATION) 0.5 MG/2 ML NEB NEB SCH ×2 (10:43→22:10)
[2020-07-23] MEDS: ALBUTEROL SULF 2.5 MG/0.5ML(0.5%) NEB SOLN NEB SCH ×2 (10:43→22:10)
[2020-07-23] MEDS: MIDAZOLAM DRIP 50 mg/50mL 50 ML IV SCH (11:45)
[2020-07-23] MEDS: FLUCONAZOLE 200MG/100ML 100 ML IV SCH (12:00)
[2020-07-24] VITALS (30 sets, daily range): BP systolic 78–135; BP diastolic 53–79
[2020-07-24] MEDS: InsuLIN REG 1unit/0.01ml Soln (100units/ml) SC SCH ×3 (00:30→12:15)
[2020-07-24] MEDS: FREE WATER NG SCH ×3 (00:30→12:00)
[2020-07-24] MEDS: fentaNYL Drip 2500mCg/250mlNS 250 ML IV SCH (01:30)
[2020-07-24] MEDS: ACCU-CHEK COMFORT CURVE STRIP VI SCH ×3 (05:44→12:00)
[2020-07-24] MEDS: MEROPENEM 1GM IVPB 100 ML IV SCH (05:46)
[2020-07-24] MEDS: BUDESONIDE (INHALATION) 0.5 MG/2 ML NEB NEB SCH (06:42)
[2020-07-24] MEDS: ALBUTEROL SULF 2.5 MG/0.5ML(0.5%) NEB SOLN NEB SCH (06:42)
[2020-07-24] MEDS: INSULIN LANTUS (GLARGINE) 1 /0.01ml (100units/ml) SC SCH (07:00)
[2020-07-24] MEDS: ASCORBIC ACID 1,000 MG TAB PO SCH (09:54)
[2020-07-24] MEDS: ENOXAPARIN SOD 40 MG/0.4 ML SYRINGE SC SCH (09:54)
[2020-07-24] MEDS: SODIUM CHLOR 0.9% PF (SALINE LOCK) 10ML VIAL/SYR IV SCH (09:54)
[2020-07-24] MEDS: CHOLECALCIFEROL (VITD3) 2,000 UNIT CAP PO SCH (09:54)
[2020-07-24] MEDS: LINEZOLID 600MG/300ML 300 ML IV SCH (09:54)
[2020-07-24] MEDS: LACTULOSE 20Gm/30ML SOLN PO SCH (09:54)
[2020-07-24] MEDS: ZINC SULFATE 220mg CAP or TAB PO SCH (09:54)
[2020-07-24] MEDS: MULTIPLE VITAMIN TAB PO SCH (09:54)
[2020-07-24] MEDS: FAMOTIDINE (10MG/ML) 2ML VL IV SCH (09:54)
[2020-07-24] MEDS: PROPOFOL 100 ML IV SCH (11:15)
[2020-07-24] MEDS: MIDAZOLAM DRIP 50 mg/50mL 50 ML IV SCH (11:45)
[2020-07-24] MEDS ORDERED: MORPHINE SULF INJ 2 MG/ML SYRINGE 1ML IV PRN (13:30)
[2020-07-24] MEDS ORDERED: LORazepam 2MG/ML-1ML VIAL IV PRN (13:30)
== END 2020-07-24 21:54 | DRG 870 ==
LOC: EDBD 15:19 → ER 15:19 → OVERFLOW 15:20 → TELE-WESTW 07-07 03:59 → CATH ICU 07-09 03:37 → ICU WEST 07-09 09:19
PROVIDERS: ADMIT Nurse Practitioner Family; ATTEND Internal Medicine
PROC: 5A1955Z Respiratory Ventilation, Greater than 96 Consecutive Hours (ICD-10-PCS; 2020-07-09)
PROC: 0BH17EZ Insertion of Endotracheal Airway into Trachea, Via Natural or Artificial Opening (ICD-10-PCS; 2020-07-09)
PROC: XW033E5 Introduction of Remdesivir Anti-infective into Peripheral Vein, Percutaneous Approach, New Technology Group 5 (ICD-10-PCS; 2020-07-09)
PROC: XW13325 Transfusion of Convalescent Plasma (Nonautologous) into Peripheral Vein, Percutaneous Approach, New Technology Group 5 (ICD-10-PCS; 2020-07-10)
PROC: 02HV33Z Insertion of Infusion Device into Superior Vena Cava, Percutaneous Approach (ICD-10-PCS; principal; 2020-07-11)
PROC: B548ZZA Ultrasonography of Superior Vena Cava, Guidance (ICD-10-PCS; 2020-07-11)
DX: A41.89 Other specified sepsis (principal); U07.1 COVID-19; G93.41 Metabolic encephalopathy; J96.01 Acute respiratory failure with hypoxia; N17.0 Acute kidney failure with tubular necrosis; J12.82 Pneumonia due to coronavirus disease 2019; G93.1 Anoxic brain damage, not elsewhere classified; I48.20 Chronic atrial fibrillation, unspecified; E87.1 Hypo-osmolality and hyponatremia; D72.810 Lymphocytopenia; R79.89 Other specified abnormal findings of blood chemistry; E11.649 Type 2 diabetes mellitus with hypoglycemia without coma; E87.8 Other disorders of electrolyte and fluid balance, not elsewhere classified; N18.9 Chronic kidney disease, unspecified; E66.9 Obesity, unspecified; E87.5 Hyperkalemia; E11.65 Type 2 diabetes mellitus with hyperglycemia; Z88.6 Allergy status to analgesic agent; Z88.0 Allergy status to penicillin; I12.9 Hypertensive chronic kidney disease with stage 1 through stage 4 chronic kidney disease, or unspecified chronic kidney disease; E11.22 Type 2 diabetes mellitus with diabetic chronic kidney disease; Z68.28 Body mass index [BMI] 28.0-28.9, adult; Z83.3 Family history of diabetes mellitus; Z95.1 Presence of aortocoronary bypass graft
CPT/HCPCS: 36415; 36569; 36600; 70450; 71045; 74018; 80048; 80053; 80076; 81001; 82040; 82570; 82728; 82805; 82962; 83036; 83605; 83615; 83735; 83935; 84100; 84133; 84300; 84478; 84484; 85025; 85379; 85610; 85730; 86141; 86850; 86900; 86901; 87040; 87070; 87077; 87081; 87086; 87205; 87426; 93005; 94002; 94003; 94640; 96365; 96366; 99291; G0378; J0330; J1100; J1450; J1815; J1956; J2185; J2250; J2704; J3480; J3490